=== PATIENT | male | born 1990 | race Caucasian/White ===

== ENCOUNTER 2023-04-10 11:40 | Emergency (ER) | payer BC ==
[~2023-04-10] VITALS: Ht 180.3 cm; Wt 108.9 kg
[2023-04-10 11:53] VITALS: BP_SYST 148; PULSE 81; RESP 19; TEMP 98.4; O2SAT 98
[2023-04-10 13:07] LABS: CALCIUM 8.4 mg/dL (8.4-11.0); CREATININE 1.14 mg/dL (0.55-1.30)
[2023-04-10 13:11] LABS: BASOPHILS # (AUTO) 0.1 K/uL (0.0-0.2); EOSINOPHILS # (AUTO) 0.1 K/uL (0.0-0.4); EOSINOPHILS % (AUTO) 2.1 % (0.0-4.0); HEMOGLOBIN 17.8 g/dL (14.0-18.0); LYMPHOCYTES # (AUTO) 1.4 K/uL (1.0-5.5); LYMPHOCYTES % (AUTO) 20.7 % (20.5-51.5); MEAN CORPUSCULAR HEMOGLOBIN 30 pg (27-31); MEAN CORPUSCULAR HGB CONC 33 % (32-36); MEAN CORPUSCULAR VOLUME 90 fL (79.0-98.0); MONOCYTES # (AUTO) 0.6 K/uL (0.0-1.0); MONOCYTES % (AUTO) 8.6 % (1.7-9.3); NEUTROPHILS # (AUTO) 4.7 K/uL (1.8-7.7); NEUTROPHILS % (AUTO) 67.6 % (40.0-70.0); PLATELET COUNT (AUTO) 227 K/uL (130-430); RED BLOOD CELL COUNT(AUTO) 5.98 MIL/uL (4.2-6.2); RED CELL DISTRIBUTION WIDTH 13.7 % (9.0-15.0)
[2023-04-10 13:12] LABS: ALBUMIN 3.7 g/dL (3.4-4.8); TOTAL BILIRUBIN 1.6 mg/dL (0.0-1.0)
[2023-04-10] MEDS ORDERED: OMEP20TA20 PO (14:03)
[2023-04-10] MEDS ORDERED: ANT30 PO (14:03)
[2023-04-10 14:12] VITALS: BP_SYST 148; PULSE 81; RESP 19; TEMP 98.4; O2SAT 98
== END 2023-04-10 14:12 | disposition home or self-care (01) ==
LOC: SED 11:40
DX: R10.9 Unspecified abdominal pain (principal); E87.5 Hyperkalemia; R11.2 Nausea with vomiting, unspecified; Z79.899 Other long term (current) drug therapy
CPT/HCPCS: 36415; 80053; 83690; 85025; 99283